=== PATIENT | female | born 1975 | race African-American/Black ===

== ENCOUNTER 2017-09-27 17:39 | Emergency (ER) | payer OTHER ==
[~2017-09-27] VITALS: Ht 167.6 cm; Wt 68.2 kg
[~2017-09-27 17:39] MED LIST: ANTIBIOTIC PO; CITA20TA9 PO; CLON2 PO; IBUP-2070 PO; METF1000 PO
[2017-09-27 17:50] VITALS: BP 160/126
[2017-09-27 18:12] LABS: GLUCOSE,POINT OF CARE 106 MG/DL (70-110)
== END 2017-09-27 20:43 | disposition left against medical advice (07) ==
LOC: EMS 17:40
DX: Z53.21 Procedure and treatment not carried out due to patient leaving prior to being seen by health care provider (principal)
CPT/HCPCS: 82962

== ENCOUNTER 2017-09-30 13:16 | Emergency (ER) | payer OTHER ==
[~2017-09-30] VITALS: Ht 157.5 cm; Wt 63.6 kg
[~2017-09-30 13:16] MED LIST changes: -ANTIBIOTIC PO
[2017-09-30 13:26] VITALS: BP 140/101
== END 2017-10-10 15:55 | disposition left against medical advice (07) ==
LOC: EMS 10-10 13:13
DX: K04.7 Periapical abscess without sinus (principal); E11.9 Type 2 diabetes mellitus without complications; Z53.21 Procedure and treatment not carried out due to patient leaving prior to being seen by health care provider

== ENCOUNTER 2017-11-26 20:43 | Emergency (ER) | payer OTHER ==
[~2017-11-26] VITALS: Ht 154.9 cm; Wt 63.6 kg
[2017-11-26 20:52] LABS: GLUCOSE,POINT OF CARE 96 MG/DL (70-110)
[2017-11-26 21:56] LABS: BASOPHILS % (AUTO) 1.1 % (0.0-2.0); EOSINOPHILS % (AUTO) 5.7 % (1.0-6.0); HEMATOCRIT 39.3 % (36-46); LYMPHOCYTES # (AUTO) 2.9 K/uL (1.0-4.8); LYMPHOCYTES % (AUTO) 35.6 % (22.0-44.0); MEAN CORPUSCULAR HEMOGLOBIN 29.1 pg (26.0-34.0); MEAN CORPUSCULAR HGB CONC 33.1 G/dL (31.0-37.0); MEAN CORPUSCULAR VOLUME 88 fL (80-100); MONOCYTES # (AUTO) 0.9 K/uL (0.1-1.0); MONOCYTES % (AUTO) 11.5 % (2.0-9.0); NEUTROPHILS # (AUTO) 3.7 K/uL (1.8-7.7); NEUTROPHILS % (AUTO) 46.1 % (40.0-70.0); PLATELET COUNT (AUTO) 280 K/uL (150-450); RED BLOOD CELL COUNT(AUTO) 4.47 MIL/uL (4.00-5.20); RED CELL DISTRIBUTION WIDTH 13.3 % (11.5-14.5)
[2017-11-26 22:00] LABS: ANION GAP 8 mmol/L (8-16); CALCIUM, TOTAL 8.8 mg/dL (8.8-10.5); CARBON DIOXIDE 31 mmol/L (22-29); CHLORIDE 103 mmol/L (98-107); GLOMERULAR FILTR. RATE CALC > 60 mL/min (>60); GLUCOSE,RANDOM 87 mg/dL (70-110); POTASSIUM 3.7 mmol/L (3.5-5.1); SODIUM SERUM 142 mmol/L (136-145); UREA NITROGEN, BLOOD 8 mg/dL (7-18)
[2017-11-26 22:45] VITALS: BP 136/94
[2017-11-26] MEDS ORDERED: LISINOPRIL 10 MG TABLET PO ONE (23:15)
== END 2017-11-26 23:21 | disposition home or self-care (01) ==
LOC: EMS 20:44
DX: I10 Essential (primary) hypertension (principal); R20.2 Paresthesia of skin; E11.9 Type 2 diabetes mellitus without complications; Z91.040 Latex allergy status
CPT/HCPCS: 82962; 93005; 99285